=== PATIENT | female | born 1980 | race Caucasian/White ===

== ENCOUNTER 2020-12-13 07:31 | Day surgery (SDC) | payer OTHER ==
[~2020-12-13] VITALS: Ht 177.8 cm; Wt 106.8 kg
[~2020-12-13 07:31] MED LIST: CALCIUM + D 5001 TAB; MULTI VITAMINS1 TAB PO; NORCO 325 MG-7.1 TAB PO
[2020-12-13 08:22] VITALS: BP 138/85; PULSE 82; TEMP 98
[2020-12-13] MEDS ORDERED: TYLENOL 500MG500 MG PO (08:28)
[2020-12-13] MEDS ORDERED: VITAMINC1000TA PO (08:29)
[2020-12-13] MEDS ORDERED: CALCIUM 600/VIT1 CA1 PO (08:29)
[2020-12-13] MEDS ORDERED: VITAMIN B12 781 TAB PO (08:30)
[2020-12-13] MEDS ORDERED: PEPCID 20MG TAB20 MG PO (08:31)
[2020-12-13] MEDS ORDERED: IRON TABLETS325 MG PO (08:31)
[2020-12-13] MEDS ORDERED: IBU400 MG PO (08:32)
[2020-12-13] MEDS ORDERED: EPA FISH OIL1 SGL PO (08:32)
[2020-12-13] MEDS ORDERED: SALONPAS1 EACH TP (08:34)
[2020-12-13] MEDS ORDERED: CLARITIN 1010 MG/TAB PO (08:34)
[2020-12-13] MEDS ORDERED: MULTIPLE VITAMI1 TA5 PO (08:34)
[2020-12-13] MEDS ORDERED: NATURAL ST. JO300 MG PO (08:35)
[2020-12-13] MEDS ORDERED: PROBIOTIC DIGE1 EACH PO (08:35)
[2020-12-13] MEDS ORDERED: SOMA 350MG350 MG/TAB PO (08:37)
[2020-12-13] MEDS ORDERED: NORCO 325 MG-51 TAB PO (08:37)
[2020-12-13 09:38] VITALS: BP 126/76; PULSE 76; TEMP 97.8
[2020-12-13 09:45] VITALS: BP 128/81; PULSE 71
[2020-12-13] MEDS ORDERED: PRILOSEC 20MG20 MG PO (09:53)
[2020-12-13 10:00] VITALS: BP 135/75; PULSE 79
[2020-12-13 10:15] VITALS: BP 128/80; PULSE 77
--- NOTE | 2020-12-13 10:30 | NUR ---
0935 Pt returns from endo procedure via cart and RN assist to [facility]. Pt desires to use the restroom before going back to room. Cart brought to restroom. Pt assisted in with this RN assist. Pt's remains in restroom with her while she voids. Pt ambulates from restroom to [facility] with and RN assist and walking with cane. Monitors on and alarms set. Call light within reach. Pt alert and oriented. Pt requests muffin and apple juice. Pt denies any pain or nausea. 0945 Pt taking food and drink well. No complications noted. 1023 Discharge instructions given to pt and . All questions answered to their satisfaction. Handed to pt are a thank you card and discharge information. 1030 Pt transferred out of the hospital via wheelchair and this RN assist, to private vehicle driven by .
== END 2020-12-13 10:30 | disposition home or self-care (01) ==
LOC: SDCO 07:31
DX: K29.31 Chronic superficial gastritis with bleeding (principal); K64.0 First degree hemorrhoids; I10 Essential (primary) hypertension; G89.29 Other chronic pain; M54.9 Dorsalgia, unspecified; F17.210 Nicotine dependence, cigarettes, uncomplicated; G62.9 Polyneuropathy, unspecified; Z20.822 Contact with and (suspected) exposure to COVID-19; Z85.41 Personal history of malignant neoplasm of cervix uteri; Z79.891 Long term (current) use of opiate analgesic; Z98.84 Bariatric surgery status
CPT/HCPCS: J2704; J7030

== ENCOUNTER → 2021-01-13 | Outpatient (CLI) | payer OTHER ==
[~2021-01-13] MED LIST changes: +CALCIUM 600/VIT1 CA1 PO; +CLARITIN 1010 MG/TAB PO; +EPA FISH OIL1 SGL PO; +IBU400 MG PO; +IRON TABLETS325 MG PO; +MULTIPLE VITAMI1 TA5 PO; +NATURAL ST. JO300 MG PO; +NORCO 325 MG-51 TAB PO; +PEPCID 20MG TAB20 MG PO; +PRILOSEC 20MG20 MG PO; +PROBIOTIC DIGE1 EACH PO; +SALONPAS1 EACH TP; +SOMA 350MG350 MG/TAB PO; +TYLENOL 500MG500 MG PO; +VITAMIN B12 781 TAB PO; +VITAMINC1000TA PO
== END ==
LOC: COL.RAD 08:55
DX: M51.26 Other intervertebral disc displacement, lumbar region (principal); M50.31 Other cervical disc degeneration, high cervical region

== ENCOUNTER → 2021-05-01 | Outpatient (CLI) | payer OTHER | LOC: MHCPAIN 12:33 | DX: M47.817 Spondylosis without myelopathy or radiculopathy, lumbosacral region (principal); M53.3 Sacrococcygeal disorders, not elsewhere classified; M54.16 Radiculopathy, lumbar region | CPT/HCPCS: G0463 ==

== ENCOUNTER → 2021-05-18 | Outpatient (CLI) | payer OTHER | LOC: MHCPAIN 14:10 | DX: M47.816 Spondylosis without myelopathy or radiculopathy, lumbar region (principal); M53.3 Sacrococcygeal disorders, not elsewhere classified; M54.16 Radiculopathy, lumbar region | CPT/HCPCS: J1100; Q9967 ==

== ENCOUNTER → 2021-06-20 | Outpatient (CLI) | payer OTHER | LOC: MHCPAIN 06-07 14:58 | DX: M47.817 Spondylosis without myelopathy or radiculopathy, lumbosacral region (principal); M53.3 Sacrococcygeal disorders, not elsewhere classified; M54.50 Low back pain, unspecified; F17.210 Nicotine dependence, cigarettes, uncomplicated | CPT/HCPCS: G0463 ==

== ENCOUNTER → 2021-07-17 | Outpatient (CLI) | payer OTHER | LOC: MHCPAIN 07-13 14:06 | DX: M47.817 Spondylosis without myelopathy or radiculopathy, lumbosacral region (principal); M54.50 Low back pain, unspecified; M53.3 Sacrococcygeal disorders, not elsewhere classified ==

== ENCOUNTER → 2021-08-02 | Outpatient (CLI) | payer OTHER | LOC: MHCPAIN 13:50 | DX: M47.817 Spondylosis without myelopathy or radiculopathy, lumbosacral region (principal); M53.3 Sacrococcygeal disorders, not elsewhere classified; M54.50 Low back pain, unspecified | CPT/HCPCS: G0463 ==

== ENCOUNTER → 2021-08-17 | Outpatient (CLI) | payer OTHER | LOC: MHCPAIN 10:33 | DX: M47.817 Spondylosis without myelopathy or radiculopathy, lumbosacral region (principal); M54.50 Low back pain, unspecified; M53.3 Sacrococcygeal disorders, not elsewhere classified ==

== ENCOUNTER → 2021-09-28 | Outpatient (CLI) | payer OTHER | LOC: MHCPAIN 13:28 | DX: M47.817 Spondylosis without myelopathy or radiculopathy, lumbosacral region (principal); M53.3 Sacrococcygeal disorders, not elsewhere classified; M54.50 Low back pain, unspecified | CPT/HCPCS: G0463; J1100; J2250; J3010 ==

== ENCOUNTER → 2021-12-19 | Outpatient (CLI) | payer OTHER | LOC: MHCPAIN 13:21 | DX: M54.2 Cervicalgia (principal); M54.59 Other low back pain; M47.897 Other spondylosis, lumbosacral region; M54.16 Radiculopathy, lumbar region | CPT/HCPCS: G0463 ==